=== PATIENT | female | born 1965 | race Caucasian/White ===

== ENCOUNTER 2020-09-04 19:47 | Emergency (ER) | payer MEDICAID ==
--- NOTE | 2020-09-04 20:44 | EDM.PDOC ---
ED HPI GENERAL MEDICAL PROBLEM - General Chief Complaint: Genitourinary Problem Stated Complaint: URINATING BLOOD COUPLE DAYS,PULLING SENSATION AYE Time Seen by Provider: 09/04/20 20:37 Source of Information: Reports: Patient, RN History Limitations: Reports: No Limitations - History of Present Illness INITIAL COMMENTS - FREE TEXT/NARRATIVE: ED with increased frequency of urination and "Peeing blood, no fever or chills. Chronic back pain brom tail bone to upper back. had been on Gabapentin three times daily when in [place], Has not established primary care in area. Has not taken tylenol or ibuprofen for back pain because " it doesn't help. On metformin for diabetes, prone to UTI's. No c/o constipation or diarrhea. Left Flank Pain Score (Numeric/FACES): 7 - Related Data Allergies Allergy/AdvReac Type Severity Reaction Status Date / Time sulfamethoxazole Allergy Mild Confusion Verified 09/04/20 20:29 [From Bactrim] trimethoprim [From Bactrim] Allergy Mild Confusion Verified 09/04/20 20:29 Home Meds: Home Meds Sertraline [Zoloft] 200 mg PO DAILY 09/04/20 [History] metFORMIN [Glucophage XR] PO DAILY 09/04/20 [History] Past Medical History Gastrointestinal History: Reports: GERD, Hiatal Hernia Musculoskeletal History: Reports: Back Pain, Chronic Endocrine/Metabolic History: Reports: Diabetes, Type II Other Dermatologic History: sebaceous cyst left abdomen 2 months ago - Past Surgical History GI Surgical History: Reports: Appendectomy, Cholecystectomy Other GI Surgeries/Procedures: hernia surgery 2 years ago Female Surgical History: Reports: Hysterectomy Social & Family History - Tobacco Use Tobacco Use Status *Q: Current Every Day Tobacco User Years of Tobacco use: 20 Packs/Tins Daily: 1 - Caffeine Use Caffeine Use: Reports: Tea - Recreational Drug Use Recreational Drug Use: No ED ROS GENERAL - Review of Systems Review Of Systems: Comprehensive ROS is negative, except as noted in HPI. ED EXAM, RENAL/ - Physical Exam Exam: See Below Exam Limited By: No Limitations General Appearance: Alert, No Apparent Distress Ears: Normal External Exam, Hearing Grossly Normal Nose: Normal Inspection Throat/Mouth: Normal Inspection Head: Atraumatic, Normocephalic Respiratory/Chest: No Respiratory Distress, Lungs Clear, Normal Breath Sounds Cardiovascular: Normal Peripheral Pulses, Regular Rate, Rhythm GI/Abdominal: Normal Bowel Sounds, Soft, Tender (mild lower around old well healed surgical incision lower abdomen) Back Exam: Full Range of Motion, Paraspinal Tenderness. No: Vertebral Tenderness Neurological: Alert, Oriented, Normal Cognition Psychiatric: Normal Affect, Normal Mood Skin Exam: Warm, Dry, Intact, Normal Color Course - Vital Signs Last Recorded V/S: Last Vital Signs Temp 97.3 F 09/04/20 20:05 Pulse 93 09/04/20 20:05 Resp 18 09/04/20 20:05 BP 149/80 H 09/04/20 20:05 Pulse Ox 97 09/04/20 20:05 - Orders/Labs/Meds Labs: Laboratory Tests 09/04/20 Range/Units 20:05 Urine Color Light yellow (YELLOW) Urine Appearance Clear (CLEAR) Urine pH 6.0 (5.0-9.0) Ur Specific Blaine 1.015 (1.005-1.030) Urine Protein Negative (NEGATIVE) Urine Glucose (UA) Negative (NEGATIVE) Urine Ketones Negative (NEGATIVE) Urine Occult Blood Negative (NEGATIVE) Urine Nitrite Negative (NEGATIVE) Urine Bilirubin Negative (NEGATIVE) Urine Urobilinogen 0.2 (0.2-1.0) mg/dL Ur Leukocyte Esterase Negative (NEGATIVE) Departure - Departure Time of Disposition: 20:40 Disposition: Home, Self-Care 01 Condition: Good Clinical Impression: Urinary frequency Chronic back pain Qualifiers: Back pain location: low back pain Back pain laterality: bilateral Sciatica presence: without sciatica Qualified Code(s): M54.5 - Low back pain; G89.29 - Other chronic pain - Discharge Information *PRESCRIPTION DRUG MONITORING PROGRAM REVIEWED*: No *COPY OF PRESCRIPTION DRUG MONITORING REPORT IN PATIENT JANETT: No Instructions: Chronic Back Pain, [id number] Forms: ED Department Discharge Additional Instructions: increase fluids alternate tylenol and ibuprofen every 4 hours as needed for back pain establish care with primary care clinic for ongoing management of diabetes and chronic back pain recheck if symptoms worsen difficulty voiding, fever vomiting monitor blood sugars Sepsis Event Note (ED) - Evaluation Sepsis Screening Result: No Definite Risk - Focused Exam Vital Signs: Vital Signs Temp Pulse Resp BP Pulse Ox 09/04/20 20:05 97.3 F 93 18 149/80 H 97
== END 2020-09-04 20:51 | disposition home or self-care (01) ==
LOC: DL.ED 19:47
DX: R35.0 Frequency of micturition (principal); G89.29 Other chronic pain; M54.5 Low back pain; E11.9 Type 2 diabetes mellitus without complications; Z88.1 Allergy status to other antibiotic agents; Z72.0 Tobacco use; Z79.84 Long term (current) use of oral hypoglycemic drugs
CPT/HCPCS: 81003; 99283

== ENCOUNTER 2020-12-06 11:26 | Emergency (ER) | payer MEDICAID ==
--- NOTE | 2020-12-06 12:22 | EDM.PDOC ---
ED HPI GENERAL MEDICAL PROBLEM - General Chief Complaint: Neck Problem Stated Complaint: [id number] SWOLLEN PAINFUL SPOT ON NECK Time Seen by Provider: 12/06/20 11:58 Source of Information: Reports: Patient, RN, RN Notes Reviewed History Limitations: Reports: No Limitations - History of Present Illness INITIAL COMMENTS - FREE TEXT/NARRATIVE: Myrna is a 55 y/o female who presents to the ED via personal vehicle with complaints of pain and swelling to her left lateral neck. The patient reports her symptoms began approximately four days ago and have progressed in severity over that time. She attests to a history of similar symptoms approximately one year ago; she underwent biopsy via ENT which was found to be benign. The patient denies fever, shaking chills, sinus congestion, ear pain/pressure, difficulty swallowing, throat tightness, drooling, pain with head movement, palpitations, nausea, vomiting, or diarrhea. She has taken one dose of ibuprofen and acetaminophen with mild alleviation in symptoms. She attests to smoking 1/4 pack of cigarettes per day; she denies alcohol or recreational drug use. Left Neck Pain Score (Numeric/FACES): 9 - Related Data Allergies Allergy/AdvReac Type Severity Reaction Status Date / Time sulfamethoxazole Allergy Mild Confusion Verified 12/06/20 11:55 [From Bactrim] trimethoprim [From Bactrim] Allergy Mild Confusion Verified 12/06/20 11:55 Home Meds: Home Meds Sertraline [Zoloft] 200 mg PO DAILY 09/04/20 [History] metFORMIN [Glucophage XR] PO DAILY 09/04/20 [History] Past Medical History HEENT History: Reports: None Cardiovascular History: Reports: None Respiratory History: Reports: None Gastrointestinal History: Reports: GERD, Hiatal Hernia Genitourinary History: Reports: None REGIONAL ECONOMIST History: Reports: None Musculoskeletal History: Reports: Back Pain, Chronic Neurological History: Reports: None Psychiatric History: Reports: Anxiety, Depression Endocrine/Metabolic History: Reports: Diabetes, Type II Hematologic History: Reports: None Immunologic History: Reports: None Oncologic (Cancer) History: Reports: None Other Dermatologic History: sebaceous cyst left abdomen 2 months ago - Infectious Disease History Infectious Disease History: Reports: None - Past Surgical History Head Surgeries/Procedures: Reports: None GI Surgical History: Reports: Appendectomy, Cholecystectomy, Hernia, Abdominal Other GI Surgeries/Procedures: hernia surgery 2 years ago Female Surgical History: Reports: Hysterectomy Social & Family History - Family History Family Medical History: No Pertinent Family History - Tobacco Use Tobacco Use Status *Q: Current Every Day Tobacco User Years of Tobacco use: 12 Packs/Tins Daily: 1 - Caffeine Use Caffeine Use: Reports: Tea - Recreational Drug Use Recreational Drug Use: No ED ROS GENERAL - Review of Systems Review Of Systems: Comprehensive ROS is negative, except as noted in HPI. ED EXAM, UPPER BACK/NECK PAIN - Physical Exam Exam: See Below Exam Limited By: No Limitations General Appearance: Alert, Mild Distress (Pain to left inferior, lateral jaw) Eye Exam: Bilateral Eye: EOMI, Normal Inspection, PERRL (2mm) Ears Exam: Normal External Exam, Normal Canal, Hearing Grossly Normal, Normal TMs Nose Exam: Normal Inspection, Normal Mucousa, No Blood Throat/Mouth Exam: Normal Inspection, Normal Lips, Normal Teeth, Normal Gums, Normal Oropharynx, Normal Voice, No Airway Compromise. No: Hoarse Voice, Muffled Voice, Pharyngeal Erythema, Tongue Swelling, Tonsillar Erythema, Tonsillar Exudate, Tonsillar Swelling, Trismus, Uvular Deviation, Uvular Edema Head Exam: Atraumatic, Normocephalic Neck Exam: Full Range of Motion, Tender Lateral (To left). No: Normal Inspection (Swelling to inferior, lateral mandible), Stiff Neck Nexus Criteria: No: Posterior, Midline Cervical Tenderness, Evidence of Intoxication, Altered Level of Consciousness, Focal Neurological Deficit, Painful Distraction Injuries Cardiovascular/Respiratory: Regular Rate, Rhythm, No M/R/G, Normal Peripheral Pulses, No JVD, Normal Breath Sounds, No Respiratory Distress GI/Abdominal: Normal Bowel Sounds, Soft, Non-Tender, No Distention, No Abnormal Bruit, No Mass, Pelvis Stable (Female) Exam: Deferred Rectal (Female) Exam: Deferred Back Exam: Normal Inspection, Full Range of Motion Extremities: Normal Inspection, Normal Range of Motion, Normal Capillary Refill 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 Will treat infected submandibular gland with Augmentin and Medrol Dose pack. Supportive cares for swelling discussed. Patient instructed to follow up with ENT regarding todays visit. Red flag signs and symptoms which would warrant immediate reevaluation reviewed. Patient verbalized understanding and agreement with the plan of care. Departure - Departure Time of Disposition: 12:17 Disposition: Home, Self-Care 01 Condition: Fair Clinical Impression: Submandibular lymphadenitis - Discharge Information *PRESCRIPTION DRUG MONITORING PROGRAM REVIEWED*: Not Applicable *COPY OF PRESCRIPTION DRUG MONITORING REPORT IN PATIENT JANETT: Not Applicable Instructions: Lymphadenopathy Referrals: PCP,None [Primary Care Provider] - Forms: ED Department Discharge Additional Instructions: Rx: Solu-Medrol Dose Pack Rx: Augmentin 1.) Start your antibiotic and steroids today; continue until all pills area gone, even as symptoms improve. 2.) Follow up with an ENT physician. 3.) You may take ibuprofen (Advil/Motrin) 400mg every six hours, as pain and swelling persist. You may also take acetaminophen (Tylenol) 650mg every six hours, as pain persists. You may stagger these medications so you are taking a dose of either every three hours. 4.) You may apply cold compresses to the area as pain and swelling persist, 20 minutes every hour. 5.) Return to the emergency department with any persistent or worsening symptoms despite medications. Sepsis Event Note (ED) - Evaluation Sepsis Screening Result: No Definite Risk
== END 2020-12-06 12:31 | disposition home or self-care (01) ==
LOC: DL.ED 11:26
DX: I88.9 Nonspecific lymphadenitis, unspecified (principal); E11.9 Type 2 diabetes mellitus without complications; Z88.1 Allergy status to other antibiotic agents; Z79.84 Long term (current) use of oral hypoglycemic drugs; Z72.0 Tobacco use
CPT/HCPCS: 99283

== ENCOUNTER 2022-06-25 05:02 | Day surgery (SDC) | payer MEDICAID ==
[~2022-06-25 05:02] MED LIST: Sodium Chloride 0.9% 10 ML Syringe FLUSH PRN; Sodium Chloride 0.9% 10 ML Syringe FLUSH SCH
[2022-06-25] MEDS ORDERED: fentaNYL 100 MCG/2 ML SDV IV ONE ×3 (05:03→06:39)
[2022-06-25] MEDS ORDERED: Midazolam 1 MG/ML 2 ML SDV IV ONE ×3 (05:03→06:40)
[2022-06-25] MEDS ORDERED: Dextrose 5%-0.45% NaCl 1,000 ML IV SCH (06:00)
[2022-06-25] MEDS ORDERED: Midazolam 1 MG/ML 2 ML SDV ONE (06:17)
[2022-06-25] MEDS ORDERED: fentaNYL 100 MCG/2 ML SDV ONE (06:17)
== END 2022-06-25 08:39 | disposition home or self-care (01) ==
LOC: DL.ENDO 05:02
PROVIDERS: ATTEND Internal Medicine Gastroenterology
DX: K31.7 Polyp of stomach and duodenum (principal); D69.6 Thrombocytopenia, unspecified; R19.7 Diarrhea, unspecified; K21.9 Gastro-esophageal reflux disease without esophagitis; F17.210 Nicotine dependence, cigarettes, uncomplicated; F12.10 Cannabis abuse, uncomplicated; E66.09 Other obesity due to excess calories; F41.1 Generalized anxiety disorder; F32.A Depression, unspecified; E11.9 Type 2 diabetes mellitus without complications; Z68.25 Body mass index [BMI] 25.0-25.9, adult; Z90.89 Acquired absence of other organs; Z90.710 Acquired absence of both cervix and uterus; Z88.2 Allergy status to sulfonamides; Z79.899 Other long term (current) drug therapy
CPT/HCPCS: 43239; 87077; J2250; J3010; J7042

== ENCOUNTER 2023-09-24 12:39 | Emergency (ER) | payer MEDICAID ==
[2023-09-24] MEDS ORDERED: Sodium Chloride 0.9% 10 ML Syringe FLUSH PRN (13:00)
[2023-09-24] MEDS: Sodium Chloride 0.9% 1,000 ML IV ONE (13:10)
[2023-09-24] MEDS: Ondansetron 4 MG/2 ML SDV IVPUSH ONE (13:10)
[2023-09-24 13:20] LABS: HEMATOCRIT 37.5 % (37.0-47.0); HEMOGLOBIN 13.2 g/dL (12.0-16.0); MEAN CORPUSCULAR HEMOGLOBIN 29.6 pg (27.0-34.0); MEAN CORPUSCULAR HGB CONC 35.2 g/dL (33.0-35.0); MEAN CORPUSCULAR VOLUME 84.1 fL (80-100); PLATELET COUNT,PLT 99 10^3/uL (150-450); RED BLOOD CELL COUNT 4.46 10^6/uL (4.2-5.4); WHITE BLOOD CELL COUNT,WBC 9.2 10^3/uL (5.0-10.0)
[2023-09-24 13:26] LABS: NEUTROPHILS PERCENT AUTO 86.1 % (42.2-75.2)
[2023-09-24 13:27] LABS: BASOPHILS PERCENT AUTO 0.2 % (0.0-1.0); EOSINOPHILS PERCENT AUTO 0.2 % (1.0-3.0); LYMPHOCYTES PERCENT AUTO 10.2 % (20.5-50.1); MONOCYTES PERCENT AUTO 3.3 % (2-8)
[2023-09-24 13:39] LABS: A/G RATIO 1.3; ALANINE AMINOTRANSFERASE,ALT 23 U/L (14-59); ALBUMIN 3.4 g/dL (3.4-5.0); ALKALINE PHOSPHATASE 131 U/L (46-116); ANION GAP 11.7 mEq/L (7-13); ASPARTATE AMNIOTRANSFERASE,AST 11 U/L (15-37); BILIRUBIN TOTAL 0.6 mg/dL (0.2-1.0); BLOOD UREA NITROGEN,BUN 14 mg/dL (7-18); BUN/CREATININE RATIO 16.9 (No establ ref range); CALCIUM 8.4 mg/dL (8.5-10.1); CARBON DIOXIDE,CO2 29 mmol/L (21-32); CHLORIDE,CL 100 mmol/L (98-107); CREATININE 0.83 mg/dL (0.55-1.02); GLUCOSE RANDOM 340 mg/dL (70-99); MAGNESIUM 1.6 mg/dL (1.8-2.4); POTASSIUM,K 3.7 mmol/L (3.5-5.1); SODIUM,NA 137 mmol/L (136-145)
[2023-09-24 13:40] LABS: ESTIMATED GFR 82 mL/min (>=60)
[2023-09-24 13:42] LABS: EOSINOPHILS PERCENT MAN 1 % (1-3); LYMPHOCYTES PERCENT MAN 12 % (20-50); MONOCYTES PERCENT MAN 2 % (2-8); SEG NEUTROPHILS PERCENT MAN 85 % (42-75)
[2023-09-24 13:44] LABS: LACTIC ACID 1.6 mmol/L (0.4-2.0)
[2023-09-24] MEDS ORDERED: 50% Dextrose in Water 50 ML Syringe IVPUSH PRN (13:51)
[2023-09-24] MEDS ORDERED: Glucagon,Human Recombinant 1 MG Vial IM PRN (13:51)
[2023-09-24] MEDS: Insulin Regular, Human 100 Units/ML 3 ML Vial IV ONE (14:05)
[2023-09-24] MEDS: Nicotine 21 MG/24 Hr Patch TRDERM ONE (14:22)
[2023-09-25] MEDS: Take Home: Ondansetron 4 MG Tab.DIS, 5 Tab Pack PO ONE (07:29)
[2023-09-25] MEDS ORDERED: Magnesium Oxide 400 MG Tab PO ONE (13:52)
== END 2023-09-24 15:35 | disposition home or self-care (01) ==
LOC: DL.ED 12:39
DX: R11.2 Nausea with vomiting, unspecified (principal); E11.65 Type 2 diabetes mellitus with hyperglycemia; K21.9 Gastro-esophageal reflux disease without esophagitis; Z90.49 Acquired absence of other specified parts of digestive tract; Z90.710 Acquired absence of both cervix and uterus; Z79.4 Long term (current) use of insulin; Z79.51 Long term (current) use of inhaled steroids; Z79.899 Other long term (current) drug therapy; Z88.2 Allergy status to sulfonamides
CPT/HCPCS: 36415; 80053; 82009; 82947; 83605; 83735; 85025; 93005; 96361; 96374; 99285; A9270; J1815; J2405; J7030; 93010; 99284